=== PATIENT | male | born 2005 | race Caucasian/White ===

== ENCOUNTER 2024-12-31 16:59 | Emergency (ER) | payer OTHER ==
[2024-12-31 17:09] VITALS: PULSE 90; TEMP 98
--- NOTE | 2024-12-31 17:23 | ED ---
Recheck HPI - General Chief Complaint: Recheck/Abnormal Lab/Rx Stated Complaint: Abd/back pain Time Seen by Provider: 12/31/24 17:22 Source: patient, family, RN notes reviewed Mode of arrival: ambulatory Limitations: no limitations - History of Present Illness Initial Comments: 19-year-old male presented to the ER for evaluation of right lower abdominal/fl ank pain. Patient has a known kidney stone and is following up with urology, Dr. Lynne. Patient is scheduled to have surgical intervention in approximately 2 weeks for a "unpassable stone", per mother. Patient reports today he is having uncontrolled sharp stabbing right lower quadrant/right flank pain, nausea and vomiting due to pain. Currently rating his pain an 8 out of 10. Patient is taking antinausea medications and [place] for pain control at home along with Pepto-Bismol. He denies any fevers, chills, chest pain, shortness of breath. He does admit to dysuria and possible hematuria today. Mother contacted on-call urology, Dr. Doan, who instructed patient to come to the emergency department for further evaluation to ensure stone is not in need of emergent procedure. Patient is not on tamsulosin. Patient has no other complaints at this time. - Related Data Allergies Allergy/AdvReac Type Severity Reaction Status Date / Time latex Allergy Unknown Verified 12/31/24 17:09 Penicillins Allergy Unknown Verified 12/31/24 17:09 Review of Systems ROS Statement: Those systems with pertinent positive or pertinent negative responses have been documented in the HPI. ROS Other: All systems not noted in ROS Statement are negative. Past Medical History Additional Past Medical History / Comment(s): Kidney stones,Jaundice, [place] Dx. Sinus Tachy, Link monitor for seizures, low blood glucose, Autism, Ticks and tremors History of Any Multi-Drug Resistant Organisms: None Reported Past Surgical History: No Surgical Hx Reported Additional Past Surgical History / Comment(s): Link Monitor. Past Psychological History: ADD/ADHD Smoking Status: Never smoker Past Alcohol Use History: Rare Past Drug Use History: None Reported General Exam Limitations: no limitations General appearance: alert, in no apparent distress Respiratory exam: Present: normal lung sounds bilaterally. Absent: respiratory distress, wheezes, rales, rhonchi, stridor Cardiovascular Exam: Present: regular rate, normal rhythm, normal heart sounds. Absent: systolic murmur, diastolic murmur, rubs, gallop, clicks GI/Abdominal exam: Present: soft, tenderness (Right lower quadrant), normal bowel sounds Back exam: Present: normal inspection, other (No CVA tenderness bilaterally) Neurological exam: Present: alert, oriented X3, CN II-XII intact Skin exam: Present: warm, dry, intact, normal color. Absent: rash Course Vital Signs 12/31/24 12/31/24 17:04 19:40 Temperature 98.0 F Pulse Rate 90 90 Respiratory 17 18 Rate Blood Pressure 125/75 118/76 O2 Sat by Pulse 99 99 Oximetry Medical Decision Making - Medical Decision Making Was pt. sent in by a medical professional or institution (, PA, DRAGGER OUT, urgent care, hospital, or fpc...) When possible be specific @ -No Did you speak to anyone other than the patient for history (EMS, parent, family, police, friend...)? What history was obtained from this source @ -Patient's mother, at bedside, aiding in HPI and past medical history. Did you review nursing and triage notes (agree or disagree)? Why? @ -I reviewed and agree with nursing and triage notes Were old charts reviewed (outside hosp., previous admission, EMS record, old EKG, old radiological studies, urgent care reports/EKG's, fpc records)? Report findings @ -No old charts were reviewed Differential Diagnosis (chest pain, altered mental status, abdominal pain women, abdominal pain men, vaginal bleeding, weakness, fever, dyspnea, syncope, headache, dizziness, GI bleed, back pain, seizure, CVA, palpatations, mental health, musculoskeletal)? @ -Differential Abdominal Pain Men:Appendicitis, cholecystitis, diverticulosis, ischemic bowel, pancreatitis, hepatitis, UTI, gastroenteritis, AAA, incarcerated hernia, bowel obstruction, constipation, inflammatory bowel, hepatitis, peptic ulcer disease, splenic infarction, perforated viscus, testicular torsion, this is not meant to be an all-inclusive list EKG interpreted by me (3pts min.). @ -None X-rays interpreted by me (1pt min.). @ -None done CT interpreted by me (1pt min.). @ -CT abdomen pelvis without contrast showing a proximal 6 mm right ureteral stone causing moderate hydronephrosis. Staghorn calculus noted to right superi or kidney measuring 2 cm. Appendix unremarkable. U/S interpreted by me (1pt. min.). @ -None done What testing was considered but not performed or refused? (CT, X-rays, U/S, labs)? Why? @ -None What meds were considered but not given or refused? Why? @ -None Did you discuss the management of the patient with other professionals (professionals i.e. DrMehrdad, PA, DRAGGER OUT, lab, RT, psych nurse, social media editor, ethyl blender, teacher, affirmative action officer, behavioral health case manager)? Give summary @ -No Was smoking cessation discussed for >3mins.? @ -No Was critical care preformed (if so, how long)? @ -No Were there social determinants of health that impacted care today? How? (Homelessness, low income, unemployed, alcoholism, drug addiction, transportation, low edu. Level, literacy, decrease access to med. care, group home, rehab)? @ -No Was there de-escalation of care discussed even if they declined (Discuss DNR or withdrawal of care, Hospice)? DNR status @ -No What co-morbidities impacted this encounter? (DM, HTN, Smoking, COPD, CAD, Cancer, CVA, ARF, Chemo, Hep., AIDS, mental health diagnosis, sleep apnea, morbid obesity)? @ -None Was patient admitted / discharged? Hospital course, mention meds given and route, prescriptions, significant lab abnormalities, going to OR and other pertinent info. @ -Discharge. 19-year-old male presented the ER for evaluation of right lower quadrant abdominal pain/right flank pain. Vitals within acceptable limits. Laboratory studies unimpressive. Urinalysis is hemorrhagic with greater than 182 RBCs and large blood this is likely due to kidney stone. CT confirming stone with a 6 mm proximal right ureteral calculus with moderate upstream hydronephrosis. 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 Normal appendix. As there is no evidence of infection, pain is controlled emergency department, patient is stable for discharge at this time. I advised close follow-up with Dr. Lynne in 1 to 2 days for reevaluation. I instructed patient to take [place] and Zofran as prescribed by urology. I also recommended [id number] ibuprofen and Tylenol for pain control outpatient. Strict return parameters discussed. Patient discharged in stable condition. Patient verbally expressed understanding agreement with care plan. Case discussed with ED attending, Dr. Mckeon. Undiagnosed new problem with uncertain prognosis? @ -No Drug Therapy requiring intensive monitoring for toxicity (Heparin, Nitro, Insulin, Cardizem)? @ -No Were any procedures done? @ -No Diagnosis/symptom? @ -Ureterolithiasis Acute, or Chronic, or Acute on Chronic? @ -Acute Uncomplicated (without systemic symptoms) or Complicated (systemic symptoms)? @ -Uncomplicated Side effects of treatment? @ -No Exacerbation, Progression, or Severe Exacerbation? @ -No Poses a threat to life or bodily function? How? (Chest pain, USA, CT, pneumonia, PE, COPD, DKA, ARF, appy, cholecystitis, CVA, Diverticulitis, Homicidal, Suicidal, threat to staff... and all critical care pts) @ -Low at this time - Lab Data Result diagrams: 12/31/24 17:23 12/31/24 17:23 Lab Results 12/31/24 12/31/24 12/31/24 Range/Units 17:23 17:23 17:23 WBC 9.5 (3.8-10.6) k/uL RBC 5.19 (4.30-5.90) m/uL Hgb 15.1 (13.0-17.5) gm/dL Hct 46.0 (39.0-53.0) % MCV 88.7 (80.0-100.0) fL MCH 29.0 (25.0-35.0) pg MCHC 32.7 (31.0-37.0) g/dL RDW 13.3 (11.5-15.5) % Plt Count 341 (150-450) k/uL MPV 7.0 Neutrophils % 67 % Lymphocytes % 23 % Monocytes % 8 % Eosinophils % 1 % Basophils % 0 % Neutrophils # 6.3 (1.3-7.7) k/uL Lymphocytes # 2.1 (1.0-4.8) k/uL Monocytes # 0.7 (0-1.0) k/uL Eosinophils # 0.1 (0-0.7) k/uL Basophils # 0.0 (0-0.2) k/uL Sodium 140 (137-145) mmol/L Potassium 4.0 (3.5-5.1) mmol/L Chloride 99 (98-107) mmol/L Carbon Dioxide 31 H (22-30) mmol/L Anion Gap 10 mmol/L BUN 13 (9-20) mg/dL Creatinine 0.97 (0.66-1.25) mg/dL Est GFR (CKD-EPI)AfAm >90 (>60 ml/min/1.73 sqM) Est GFR (CKD-EPI)NonAf >90 (>60 ml/min/1.73 sqM) Glucose 111 H (74-99) mg/dL Plasma Lactic Acid Delfin 1.0 (0.7-2.0) mmol/L Calcium 10.3 H (8.4-10.2) mg/dL Total Bilirubin 1.9 H (0.2-1.3) mg/dL AST 45 (17-59) U/L ALT 39 (4-49) U/L Alkaline Phosphatase 55 (38-126) U/L Total Protein 8.1 (6.3-8.2) g/dL Albumin 5.1 H (3.5-5.0) g/dL Urine Color Urine Appearance (Clear) Urine pH (5.0-8.0) Ur Specific [place] (1.001-1.035) Urine Protein (Negative) Urine Glucose (UA) (Negative) Urine Ketones (Negative) Urine Blood (Negative) Urine Nitrite (Negative) Urine Bilirubin (Negative) Urine Urobilinogen (<2.0) mg/dL Ur Leukocyte Esterase (Negative) Urine RBC (0-5) /hpf Urine WBC (0-5) /hpf Ur Squamous Epith Cells (0-4) /hpf Urine Mucus (None) /hpf 12/31/24 Range/Units 18:15 WBC (3.8-10.6) k/uL RBC (4.30-5.90) m/uL Hgb (13.0-17.5) gm/dL Hct (39.0-53.0) % MCV (80.0-100.0) fL MCH (25.0-35.0) pg MCHC (31.0-37.0) g/dL RDW (11.5-15.5) % Plt Count (150-450) k/uL MPV Neutrophils % % Lymphocytes % % Monocytes % % Eosinophils % % Basophils % % Neutrophils # (1.3-7.7) k/uL Lymphocytes # (1.0-4.8) k/uL Monocytes # (0-1.0) k/uL Eosinophils # (0-0.7) k/uL Basophils # (0-0.2) k/uL Sodium (137-145) mmol/L Potassium (3.5-5.1) mmol/L Chloride (98-107) mmol/L Carbon Dioxide (22-30) mmol/L Anion Gap mmol/L BUN (9-20) mg/dL Creatinine (0.66-1.25) mg/dL Est GFR (CKD-EPI)AfAm (>60 ml/min/1.73 sqM) Est GFR (CKD-EPI)NonAf (>60 ml/min/1.73 sqM) Glucose (74-99) mg/dL Plasma Lactic Acid Delfin (0.7-2.0) mmol/L Calcium (8.4-10.2) mg/dL Total Bilirubin (0.2-1.3) mg/dL AST (17-59) U/L ALT (4-49) U/L Alkaline Phosphatase (38-126) U/L Total Protein (6.3-8.2) g/dL Albumin (3.5-5.0) g/dL Urine Color Yellow Urine Appearance Cloudy (Clear) Urine pH 7.5 (5.0-8.0) Ur Specific [place] 1.022 (1.001-1.035) Urine Protein Trace H (Negative) Urine Glucose (UA) Negative (Negative) Urine Ketones Negative (Negative) Urine Blood Large H (Negative) Urine Nitrite Negative (Negative) Urine Bilirubin Negative (Negative) Urine Urobilinogen <2.0 (<2.0) mg/dL Ur Leukocyte Esterase Negative (Negative) Urine RBC >182 H (0-5) /hpf Urine WBC 5 (0-5) /hpf Ur Squamous Epith Cells 1 (0-4) /hpf Urine Mucus Rare H (None) /hpf - Radiology Data Radiology results: report reviewed, image reviewed Disposition Clinical Impression: Ureterolithiasis Disposition: HOME SELF-CARE Condition: Stable Instructions (If sedation given, give patient instructions): Kidney Stones (ED) Additional Instructions: Take [place] and Zofran as prescribed. I also recommend [id number] ibuprofen and Tylenol for pain control. Follow-up closely with urology. Return to the ER for any new or worsening concerns. Is patient prescribed a controlled substance at d/c from ED?: No Referrals: Brad Bryan [Primary Care Provider] - 1-2 days Crow Lynne MD [STAFF PHYSICIAN] - 1-2 days Time of Disposition: 19:27
[2024-12-31 17:33] LABS: Basophils % (A) 0 %; Eosinophils # (A) 0.1 k/uL (0-0.7); Eosinophils % (A) 1 %; HGB 15.1 gm/dL (13.0-17.5); Lymphocytes # (A) 2.1 k/uL (1.0-4.8); Lymphocytes % (A) 23 %; MCHC 32.7 g/dL (31.0-37.0); MCV 88.7 fL (80.0-100.0); Monocytes # (A) 0.7 k/uL (0-1.0); Monocytes % (A) 8 %; Neutrophils # (A) 6.3 k/uL (1.3-7.7); Neutrophils % (A) 67 %; Platelet Count 341 k/uL (150-450); RBC 5.19 m/uL (4.30-5.90); RDW 13.3 % (11.5-15.5); WBC 9.5 k/uL (3.8-10.6)
[2024-12-31 17:50] LABS: ALT 39 U/L (4-49); AST 45 U/L (17-59); African American GFR (CKD) >90 (>60 ml/min/1.73 sqM); Albumin 5.1 g/dL (3.5-5.0); Alkaline Phosphatase 55 U/L (38-126); Anion Gap 10 mmol/L; Blood Urea Nitrogen 13 mg/dL (9-20); Calcium 10.3 mg/dL (8.4-10.2); Carbon Dioxide 31 mmol/L (22-30); Chloride 99 mmol/L (98-107); Glucose 111 mg/dL (74-99); Non-African American GFR(CKD) >90 (>60 ml/min/1.73 sqM); Sodium 140 mmol/L (137-145); Total Bilirubin 1.9 mg/dL (0.2-1.3); Total Protein 8.1 g/dL (6.3-8.2)
--- NOTE | 2024-12-31 18:22 | CT ---
EXAMINATION TYPE: CT abdomen pelvis wo con DATE OF EXAM: 12/31/2024 6:11 PM COMPARISON: None available. CLINICAL INDICATION: Male, 19 years old with history of r flank pain hx stone; Right flank pain for t he last couple days, hx of kidney stones. TECHNIQUE: Axial CT abdomen pelvis wo con;Sagittal and coronal reformats were created on a separate workstation. Oral contrast used: without Oral Contrast (none if empty) CT DLP: 399.3 mGycm, Automated exposure control for dose reduction was used. FINDINGS: LOWER CHEST: Unremarkable ABDOMEN LIVER: Unremarkable GALLBLADDER AND BILE DUCTS: Unremarkable. PANCREAS: Unremarkable. SPLEEN: Unremarkable. ADRENAL GLANDS: Unremarkable. KIDNEYS AND URETERS: 2 cm staghorn calculus in the mid/upper right kidney. 6 mm calculus in the proxi mal right ureter causing mild upstream hydronephrosis. No evidence of left-sided nephrolithiasis or h ydronephrosis. PELVIS BLADDER: No evidence for wall thickening or mass given limitations of exam. REPRODUCTIVE: Unremarkable. ABDOMEN & PELVIS STOMACH AND BOWEL: Stomach and duodenum are unremarkable. No evidence of bowel obstruction. Mildly im pacted rectosigmoid colonic stool. Appendix unremarkable. PERITONEUM/RETROPERITONEUM: No evidence of pneumoperitoneum or free fluid. VASCULATURE: No evidence of aortic aneurysm. MUSCULOSKELETAL: No acute osseous abnormalities LYMPH NODES: No gross evidence for lymphadenopathy. SOFT TISSUE/ABDOMINAL WALL: Unremarkable IMPRESSION: 1. Proximal 6 mm right ureteral calculus causing moderate upstream hydronephrosis. 2. Staghorn calculus in the superior right kidney measuring 2 cm. [facility], , 12/31/2024 6:19 PM
[2024-12-31 18:33] LABS: Appearance,Urine Cloudy (Clear); Bilirubin,Urine Negative (Negative); Blood,Urine Large (Negative); Color,Urine Yellow; Glucose,Urine (UA) Negative (Negative); Ketones,Urine Negative (Negative); Leukocyte Esterase,Urine Negative (Negative); Mucus,Urine Rare /hpf; Nitrite,Urine Negative (Negative); PH, Urine 7.5 (5.0-8.0); Protein,Urine Trace (Negative); RBC,Urine >182 /hpf (0-5); Specific Gravity,Urine 1.022 (1.001-1.035); Squamous Epithelial Cell,Urine 1 /hpf (0-4); Urobilinogen,Urine <2.0 mg/dL (<2.0); WBC,Urine 5 /hpf (0-5)
[2024-12-31] MEDS: KETOROLAC 15 MG/ML 1 ML VIAL IVP STA (18:41)
[2024-12-31] MEDS: ONDANSETRON 4 MG/2 ML VIAL IVP STA (18:41)
[2024-12-31] MEDS: SODIUM CHLORIDE 0.9% 1,000 ML IV ONE (18:42)
[2024-12-31] MEDS: HYDROmorphone 0.5 MG/0.5 ML SYRINGE IVP STA (18:42)
[2024-12-31 19:40] VITALS: BP 118/76; RESP 18
== END 2024-12-31 19:40 | disposition home or self-care (01) ==
LOC: EC 16:59
DX: N13.2 Hydronephrosis with renal and ureteral calculous obstruction (principal)
CPT/HCPCS: 36415; 80053; 83605; 85025; 81001; 74176; 99284; 96374; 96375 ×2; 96361; J2405; J1885; J1171

== ENCOUNTER 2025-01-01 07:45 | Emergency (ER) | payer OTHER ==
[2025-01-01 07:50] VITALS: TEMP 97.3
[2025-01-01] MEDS: ONDANSETRON 4 MG/2 ML VIAL IVP STA (08:15)
[2025-01-01] MEDS: KETOROLAC 15 MG/ML 1 ML VIAL IVP STA (08:15)
[2025-01-01] MEDS: SODIUM CHLORIDE 0.9% 1,000 ML IV ONE (08:15)
--- NOTE | 2025-01-01 08:15 | ED ---
General Adult HPI - General Chief complaint: Recheck/Abnormal Lab/Rx Stated complaint: Weakness,Vomiting Time Seen by Provider: 01/01/25 08:10 Source: patient, family, RN notes reviewed, old records reviewed Mode of arrival: ambulatory Limitations: no limitations - History of Present Illness Initial comments: Patient is a 19-year-old male who presents emergency department as a reevaluation for kidney stone pain. Presented yesterday and diagnosed with right sided ureteral lithiasis and staghorn calculi. CT imaging obtained yesterday shows a proximal 6 mm right ureteral calculus with moderate hydronephrosis. Patient also had a separate staghorn calculus measuring 2 cm. This was intrarenal on the right side. Patient has a known right-sided kidney stone which is likely at this staghorn calculus. Patient is scheduled for surgery in approximately 2 weeks. He is due to follow-up with Dr. Parra. Pain has been worse over the last 2 days. Patient was discharged home yesterday as there was no evidence of infection, had pain under control, and therefore was instructed to follow-up outpatient. Patient states that pain once again got worse this morning. Attempted to take one of his previously prescribed zofran and [place] tablets however he had an episode of emesis. Was brought here by his parents for further evaluation. - Related Data Allergies Allergy/AdvReac Type Severity Reaction Status Date / Time latex Allergy Unknown Verified 01/01/25 07:50 Penicillins Allergy Unknown Verified 01/01/25 07:50 Review of Systems ROS Statement: Those systems with pertinent positive or pertinent negative responses have been documented in the HPI. Review of Systems: CONST: Denies fever EYES: Denies blurry vision ENT: Denies nasal congestion C/V: Denies Chest pain RESP: Denies shortness of breath GI: Endorses abdominal pain : Endorses hematuria SKIN: Denies rash. MSK: Denies joint pain. NEURO: Denies headache ROS Other: All systems not noted in ROS Statement are negative. Past Medical History Additional Past Medical History / Comment(s): Kidney stones,Jaundice, [place] Dx. Sinus Tachy, Link monitor for seizures, low blood glucose, Autism, Ticks and tremors History of Any Multi-Drug Resistant Organisms: None Reported Past Surgical History: No Surgical Hx Reported Additional Past Surgical History / Comment(s): Link Monitor. Past Psychological History: ADD/ADHD Smoking Status: Never smoker Past Alcohol Use History: Rare Past Drug Use History: None Reported General Exam - General Exam Comments Initial Comments: General: Appears in moderate distress secondary to right flank pain, nausea HEAD: Normal with no signs of head trauma. EYES: EOMI ENT: Hearing grossly intact, normal oropharynx. RESPIRATORY: Clear breath sounds bilaterally. No wheezes, rales, or rhonchi. C/V: Regular rate and rhythm. S1 and S2 auscultated, no edema, peripheral pulses 2+ and intact throughout ABD: Abdomen is soft, nondistended. Tender to palpation of the right flank and right CVA. No guarding or rebound tenderness. No peritoneal signs. EXT: No obvious deformity SKIN: No rashes or lesions observed on exposed skin. NEURO: Alert and oriented x 4. Limitations: no limitations Course Vital Signs 01/01/25 01/01/25 07:47 10:13 Temperature 97.3 F L Pulse Rate 81 74 Respiratory 18 16 Rate Blood Pressure 138/86 117/89 O2 Sat by Pulse 100 100 Oximetry Medical Decision Making - Medical Decision Making Was pt. sent in by a medical professional or institution (, PA, PROFESSIONAL SERVICES CONSULTANT, urgent care, hospital, or [facility]cc...) When possible be specific @ -No Did you speak to anyone other than the patient for history (EMS, parent, family, police, friend...)? What history was obtained from this source @ -No Did you review nursing and triage notes (agree or disagree)? Why? @ -I reviewed and agree with nursing and triage notes Were old charts reviewed (outside hosp., previous admission, EMS record, old EKG, old radiological studies, urgent care reports/EKG's, mcc records)? Report findings @ -Viewed chart from yesterday as well as CT which showed the 6 mm right sided ureteral lithiasis as well as the staghorn calculi located intrarenally on the right. Differential Diagnosis (chest pain, altered mental status, abdominal pain women, abdominal pain men, vaginal bleeding, weakness, fever, dyspnea, syncope, headac he, dizziness, GI bleed, back pain, seizure, CVA, palpatations, mental health, musculoskeletal)? @ -Ureterolithiasis, staghorn calculi, UTI, infected renal stone. This list is not all inclusive. EKG interpreted by me (3pts min.). @ -None done X-rays interpreted by me (1pt min.). @ -None done CT interpreted by me (1pt min.). @ -None done U/S interpreted by me (1pt. min.). @ -Ultrasound reveals mild hydronephrosis on the right side. Redemonstrated proximal right ureteral stone as well as staghorn calculus in the right kidney. What testing was considered but not performed or refused? (CT, X-rays, U/S, labs)? Why? @ -None What meds were considered but not given or refused? Why? @ -None Did you discuss the management of the patient with other professionals (professionals i.e. DrMehrdad, PA, PROFESSIONAL SERVICES CONSULTANT, lab, RT, psych nurse, aids social worker, forest scientist, teacher, division officer weapons department, case supervisor)? Give summary @ -No Was smoking cessation discussed for >3mins.? @ -No Was critical care preformed (if so, how long)? @ -yes, 31 minutes Were there social determinants of health that impacted care today? How? (Homelessness, low income, unemployed, alcoholism, drug addiction, transportation, low edu. Level, literacy, decrease access to med. care, intermediate, rehab)? @ -No Was there de-escalation of care discussed even if they declined (Discuss DNR or withdrawal of care, Hospice)? DNR status @ -No What co-morbidities impacted this encounter? (DM, HTN, Smoking, COPD, CAD, Cancer, CVA, ARF, Chemo, Hep., AIDS, mental health diagnosis, sleep apnea, morbid obesity)? @ -None Was patient admitted / discharged? Hospital course, mention meds given and route, prescriptions, significant lab abnormalities, going to OR and other pertinent info. @ -Based on the patient's presentation and physical exam, presents emergency department with intractable pain from right sided kidney stone. Presented yesterday with similar complaints. Discharged home in good condition. Is due for outpatient surgical management of a right sided kidney stone in [address] Lynne. Will repeat laboratory studies and urinalysis. Will obtain an ultrasound of the renals and bladder to see if there is any significant change i n hydronephrosis or noticeable stone. Patient will be symptomatically treated with IV fluids, antiemetics, analgesia medications. He was in agreement this plan. Vital signs within acceptable limits. Patient's laboratory studies returned within acceptable limits. Systemically, no evidence of infection. Urine is still pending. Ultrasound is still pending. Patient has received multiple doses of pain medications in our emergency department so far. He is still in pain. Discussed with the patient as well as family and we are in agreement for transfer, as we did contact our urology services at our facility and we have no coverage until Saturday, January 04, 2025. They are requesting transfer to [facility]. We will attempt transfer at this time. Will continue with IV fluids, analgesia medications. Antibiotics are not initiated as no evidence of infection on yesterday's urinalysis. Have yet to receive urine for today. Ultrasound reveals mild hydronephrosis on the right side. Redemonstrated proximal right ureteral stone as well as staghorn calculus in the right kidney. Patient accepted to [facility], ER physician Dr. Hennessy and urology physician Dr. Myers are accepting physicians. Undiagnosed new problem with uncertain prognosis? @ -No Drug Therapy requiring intensive monitoring for toxicity (Heparin, Nitro, Insulin, Cardizem)? @ -No Were any procedures done? @ -No Diagnosis/symptom? @ -Right-sided ureteral lithiasis with intractable pain and nausea Acute, or Chronic, or Acute on Chronic? @ -Acute Uncomplicated (without systemic symptoms) or Complicated (systemic symptoms)? @ -Complicated Side effects of treatment? @ -None Exacerbation, Progression, or Severe Exacerbation] @ -No Poses a threat to life or bodily function? @ -Potentially, yes - Lab Data Result diagrams: 01/01/25 08:24 01/01/25 08:24 Lab Results 01/01/25 01/01/25 01/01/25 Range/Units 08:24 08:24 08:24 WBC 10.1 (3.8-10.6) k/uL RBC 4.90 (4.30-5.90) m/uL Hgb 14.2 (13.0-17.5) gm/dL Hct 43.8 (39.0-53.0) % MCV 89.2 (80.0-100.0) fL MCH 28.9 (25.0-35.0) pg MCHC 32.4 (31.0-37.0) g/dL RDW 12.8 (11.5-15.5) % Plt Count 287 (150-450) k/uL MPV 6.8 Neutrophils % 64 % Lymphocytes % 25 % Monocytes % 8 % Eosinophils % 1 % Basophils % 0 % Neutrophils # 6.4 (1.3-7.7) k/uL Lymphocytes # 2.5 (1.0-4.8) k/uL Monocytes # 0.8 (0-1.0) k/uL Eosinophils # 0.1 (0-0.7) k/uL Basophils # 0.0 (0-0.2) k/uL Sodium 138 (137-145) mmol/L Potassium 4.0 (3.5-5.1) mmol/L Chloride 102 (98-107) mmol/L Carbon Dioxide 25 (22-30) mmol/L Anion Gap 11 mmol/L BUN 15 (9-20) mg/dL Creatinine 1.17 (0.66-1.25) mg/dL Est GFR (CKD-EPI)AfAm >90 (>60 ml/min/1.73 sqM) Est GFR (CKD-EPI)NonAf 89 (>60 ml/min/1.73 sqM) Glucose 108 H (74-99) mg/dL Plasma Lactic Acid Delfin 1.8 (0.7-2.0) mmol/L Calcium 10.0 (8.4-10.2) mg/dL Total Bilirubin 1.8 H (0.2-1.3) mg/dL AST 36 (17-59) U/L ALT 33 (4-49) U/L Alkaline Phosphatase 53 (38-126) U/L Total Protein 7.2 (6.3-8.2) g/dL Albumin 4.6 (3.5-5.0) g/dL Critical Care Time Critical Care Time: Yes Total Critical Care Time: 31 Disposition Clinical Impression: Ureterolithiasis, Kidney stone on right side, Staghorn calculus, Intractable pain, Intractable nausea and vomiting Disposition: OTHER INSTITUTION NOT DEFINED Condition: Stable Referrals: Brad Bryan [Primary Care Provider] - 1-2 days Time of Disposition: 10:03 - Out of Hospital Transfer - Req. Specs Out of Hospital Transfer - Requested Specifics: Other Emergency Center (Transferred to [facility] for urology evaluation, as we do not have urology at our facility.)
[2025-01-01] MEDS: PANTOPRAZOLE 40 MG/10 ML VIAL IVP STA (08:16)
[2025-01-01] MEDS: MORPHINE SULFATE 4 MG/ML SYRINGE IVP STA ×2 (08:16→09:00)
[2025-01-01 08:44] LABS: Basophils % (A) 0 %; Eosinophils # (A) 0.1 k/uL (0-0.7); Eosinophils % (A) 1 %; HCT 43.8 % (39.0-53.0); HGB 14.2 gm/dL (13.0-17.5); Lymphocytes # (A) 2.5 k/uL (1.0-4.8); Lymphocytes % (A) 25 %; MCH 28.9 pg (25.0-35.0); MCHC 32.4 g/dL (31.0-37.0); MCV 89.2 fL (80.0-100.0); Mean Platelet Volume 6.8; Monocytes # (A) 0.8 k/uL (0-1.0); Monocytes % (A) 8 %; Neutrophils # (A) 6.4 k/uL (1.3-7.7); Neutrophils % (A) 64 %; Platelet Count 287 k/uL (150-450); RDW 12.8 % (11.5-15.5); WBC 10.1 k/uL (3.8-10.6)
[2025-01-01 09:07] LABS: ALT 33 U/L (4-49); AST 36 U/L (17-59); African American GFR (CKD) >90 (>60 ml/min/1.73 sqM); Albumin 4.6 g/dL (3.5-5.0); Alkaline Phosphatase 53 U/L (38-126); Anion Gap 11 mmol/L; Blood Urea Nitrogen 15 mg/dL (9-20); Carbon Dioxide 25 mmol/L (22-30); Chloride 102 mmol/L (98-107); Glucose 108 mg/dL (74-99); Non-African American GFR(CKD) 89 (>60 ml/min/1.73 sqM); Sodium 138 mmol/L (137-145); Total Bilirubin 1.8 mg/dL (0.2-1.3); Total Protein 7.2 g/dL (6.3-8.2)
--- NOTE | 2025-01-01 10:03 | US ---
EXAMINATION TYPE: US renals and bladder DATE OF EXAM: 01/01/2025 COMPARISON: CT 12/31/24 CLINICAL INDICATION: Male, 19 years old with history of right flank pain, known kidney stone; staghor n calc/ hydro TECHNIQUE: Grayscale imaging of the bilateral kidneys and urinary bladder: FINDINGS: EXAM MEASUREMENTS: Right Kidney: 10.9x6.5x4.7 cm Left Kidney: 10.2x5.0x4.5 cm Right Kidney: 2.3x1.6x2.1cm staghorn calc, mild hydro with 1.1cm stone noted at the proximal ureter s imilar to CT yesterday Left Kidney: No hydronephrosis or masses seen Bladder: poorly distended Bilateral Jets seen: No IMPRESSION: 1. Mild right hydronephrosis secondary to a calcification in the proximal right ureter. Based on CT a bdomen pelvis dated 12/31/2024 the stone measures approximately 6 mm 2. 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 3. Unremarkable left kidney. 4. urinary bladder not evaluated due to poor distention. [facility], , 01/01/2025 10:00 AM
[2025-01-01] MEDS: HYDROmorphone 0.5 MG/0.5 ML SYRINGE IVP STA (10:12)
[2025-01-01] MEDS: SODIUM CHLORIDE 0.9% 1,000 ML IV STA (10:12)
[2025-01-01 10:22] VITALS: RESP 16
[2025-01-01 11:48] VITALS: BP 134/93; PULSE 99
== END 2025-01-01 11:48 | disposition other institution (70) ==
LOC: EC 07:45
DX: N13.2 Hydronephrosis with renal and ureteral calculous obstruction (principal); Z91.040 Latex allergy status; Z88.0 Allergy status to penicillin
CPT/HCPCS: 36415; 80053; 83605; 85025; 76770; 99291; 96374; 96375 ×4; 96376; 96361 ×3; J2270; J2405; J1885; J1171; J2470

== ENCOUNTER → 2025-01-16 | Outpatient (CLI) | payer OTHER ==
[2025-01-16 18:54] LABS: Basophils # (A) 0.07 X 10*3/uL (0.00-0.10); Basophils % (A) 0.7 %; Eosinophils # (A) 0.16 X 10*3/uL (0.04-0.35); Eosinophils % (A) 1.5 %; HCT 45.4 % (39.6-50.0); HGB 15.1 g/dL (13.0-17.0); Lymphocytes # (A) 2.08 X 10*3/uL (0.90-5.00); Lymphocytes % (A) 20.1 %; MCH 29.6 pg (27.0-32.0); MCHC 33.3 g/dL (32.0-37.0); Mean Platelet Volume 9.6 FL (9.5-12.2); Monocytes # (A) 0.88 X 10*3/uL (0.20-1.00); Monocytes % (A) 8.5 %; NRBC Per 100 WBC 0 X 10*3/uL (0.00-0.01); Neutrophils # (A) 7.12 X 10*3/uL (1.80-7.70); Neutrophils % (A) 68.8 %; Platelet Count 347 X 10*3/uL (140-440); RDW 12.5 % (11.5-14.5); WBC 10.35 X 10*3/uL (4.50-10.00)
[2025-01-16 19:06] LABS: BUN/Creat Ratio 11.33 Ratio (12.00-20.00); Blood Urea Nitrogen 13.6 mg/dL (9.0-27.0); Calcium 10.4 mg/dL (8.7-10.3); Carbon Dioxide 28.9 mmol/L (21.6-31.8); Chloride 101 mmol/L (96-109); Glucose 89 mg/dL (70-110); Potassium 4.3 mmol/L (3.5-5.5); Sodium 141 mmol/L (135-145)
[2025-01-16 21:22] LABS: Appearance,Urine Cloudy (Clear); Bilirubin,Urine Negative (Negative); Blood,Urine Large (Negative); Color,Urine Orange (Yellow); Ketones,Urine Negative (Negative); Nitrite,Urine Negative (Negative); PH, Urine 6.5; Specific Gravity,Urine 1.016 (1.001-1.030); Urobilinogen,Urine 0.2 E.U./DL
[2025-01-16 22:29] LABS: Bacteria,Urine None Seen (None Seen); Cystine Crystals,Urine Present (None Seen)
== END | disposition home or self-care (01) ==
LOC: LABPAT 14:49
PROVIDERS: ATTEND Urology
DX: Z01.818 Encounter for other preprocedural examination (principal); I49.8 Other specified cardiac arrhythmias; N20.0 Calculus of kidney; R55 Syncope and collapse
CPT/HCPCS: 80048; 81001; 85025; 86850; 86900; 86901; 87086

== ENCOUNTER 2025-01-17 09:26 | Day surgery (SDC) | payer OTHER ==
[2025-01-16 09:11] VITALS: BMI 21.5
--- NOTE | 2025-01-17 09:44 | XR ---
EXAMINATION TYPE: XR KUB DATE OF EXAM: 01/17/2025 9:40 AM CLINICAL INDICATION: Male, 19 years old with history of N20.0 CALCULUS OF KIDNEY, pain TECHNIQUE: 2 supine images of the abdomen. COMPARISON: CT abdomen and pelvis December 31, 2024. FINDINGS: There is now a right-sided double-J ureter stent. Small right proximal ureter calculus on C T is less well seen on x-rays. Overall nonobstructive bowel gas pattern. Visualized osseous structures are intact. IMPRESSION: As above. [facility], , 01/17/2025 9:42 AM
[2025-01-17] MEDS: IV FLUID CONTINUATION 1,000 ML IV ONE ×4 (10:10→14:39)
[2025-01-17] MEDS: LACTATED RINGERS 1,000 ML IV SCH (10:20)
[2025-01-17] MEDS: GENTAMICIN 120 MG in SODIUM CHLORIDE 0.9% 100 ML IVPB PRN (10:22)
[2025-01-17] MEDS: ONDANSETRON 4 MG/2 ML VIAL IVP ONE (10:23)
[2025-01-17] MEDS: DEXAMETHASONE SOD PHOSPHATE 4 MG/ML 1 ML VIAL IV ONE (10:23)
--- NOTE | 2025-01-17 10:49 | P.HPIHPCON ---
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 He is symptomatic from his stone. Option of a right-sided PCNL was discussed. He is aware of the risk which include but not limited to bleeding, infection, injury to the kidney. Discussed also the risk of injury to nearby organs which include but not limited to bowel, liver, lungs. Risk of anesthesia was also discussed. He understood all the risk and agreed to proceed Consent for Procedure: I have explained the operation/procedure to the patient, including the risks, benefits, side effects, alternative therapies (including not receiving the proposed treatment or service), the likelihood of the patient achieving his/her goals, and potential recuperation problems for the procedure/sedation/analgesia, as well as any blood products, if indicated. I also explained to the patient the risks, benefits and side effects of the alternatives, as well as the risks related to not receiving the proposed procedure, care, treatment, or services. Past Medical History Past Medical History: Asthma, Syncope Additional Past Medical History / Comment(s): Kidney stones,Jaundice, [place] Dx. Sinus Tachy, Link monitor for seizures, low blood glucose, Autism, Ticks and tremors History of Any Multi-Drug Resistant Organisms: None Reported Past Surgical History: No Surgical Hx Reported Additional Past Surgical History / Comment(s): Link Monitor. Past Anesthesia/Blood Transfusion Reactions: No Reported Reaction Additional Past Anesthesia/Blood Transfusion Reaction / Comment(s): no hx blood transfusion. states "mom takes a lot of anesthesia to be sedated" Type of Cardiac Device: Loop Device Placement Date:: 2021 Past Psychological History: ADD/ADHD Past Alcohol Use History: Rare - Past Family History Mother Additional Family Medical History / Comment(s): thinks "mom had a blood clot around heart" Medications and Allergies Home Medications Medication Instructions Recorded Confirmed Type Sertraline HCl [Zoloft] 50 mg PO QAM 01/16/25 01/17/25 History Allergies Allergy/AdvReac Type Severity Reaction Status Date / Time latex Allergy Anaphylaxis Verified 01/17/25 10:03 Penicillins Allergy Anaphylaxis Verified 01/17/25 10:03 Surgical - Exam Vital Signs Temp Pulse Resp BP Pulse Ox 97.4 F L 68 16 130/91 98 01/17/25 10:10 01/17/25 10:10 01/17/25 10:10 01/17/25 10:10 01/17/25 10:10 - General no distress, moderate pain - Eyes normal ocular movement, no pale - ENT normal nares, normal mucosa - Respiratory normal expansion, normal respiratory effort - Abdomen Abdomen: soft, non tender Assessment and Plan Assessment: OR for right-sided PCNL
[2025-01-17] MEDS ORDERED: MAG HYDROX/AL HYDROX/SIMETH 30 ML CUP PO PRN (11:31)
[2025-01-17] MEDS ORDERED: ACETAMINOPHEN TAB 325 MG TAB PO PRN (11:31)
[2025-01-17] MEDS ORDERED: HYDROmorphone 0.5 MG/0.5 ML SYRINGE IVP PRN (11:33)
[2025-01-17] MEDS ORDERED: HYDROcodone/APAP 5-325MG 1 EACH TAB PO PRN (11:33)
[2025-01-17] MEDS ORDERED: SUCCINYLCHOLINE CHLORIDE 200 MG/10 ML VIAL IV ONE (11:57)
[2025-01-17] MEDS ORDERED: HYDROmorphone (PF) 1 MG/ML ONE (11:57)
[2025-01-17] MEDS ORDERED: PHENYLEPHRINE 10 MG/ML VIAL ONE (11:57)
[2025-01-17] MEDS ORDERED: LIDOCAINE 1% INJ 10MG/ML (20 ML MDV) ONE (11:57)
[2025-01-17] MEDS ORDERED: GLYCOPYRROLATE 0.2 MG/ML 2 ML VIAL ONE (11:57)
[2025-01-17] MEDS ORDERED: PROPOFOL 10 MG/ML 20 ML VIAL IV ONE (11:57)
[2025-01-17] MEDS ORDERED: KETAMINE HCL IN 0.9 % NACL 50 MG/5 ML SYRINGE ONE (11:57)
[2025-01-17] MEDS ORDERED: NEOSTIGMINE 1 MG/ML 10 ML VIAL ONE (11:57)
[2025-01-17] MEDS ORDERED: ROCURONIUM 10 MG/ML (5 ML VIAL) IV ONE (11:57)
[2025-01-17] MEDS ORDERED: ESMOLOL 100 MG/10 ML VIAL ONE (11:57)
[2025-01-17] MEDS ORDERED: MIDAZOLAM 2 MG/2 ML VIAL ONE (11:57)
[2025-01-17] MEDS ORDERED: fentaNYL (PF) 50 MCG/ML 2 ML AMP ONE (11:57)
[2025-01-17] MEDS: IOPAMIDOL-370 100ML BTL MISCELLANE ONE (11:59)
[2025-01-17] MEDS: CIPROFLOXACIN/DEXTROSE PMX 400 MG in DEXTROSE/WATER 1 200ML.BAG IVPB PRN (11:59)
--- NOTE | 2025-01-17 12:58 | P.PCN ---
Date of Procedure: 01/17/25 Preoperative Diagnosis: Right renal stone large (greater than 2 cm) Postoperative Diagnosis: Same Procedure(s) Performed: Percutaneous access to right kidney Anesthesia: CHERYL Surgeon: Scott Stone Indications for Procedure: Patient is 19. He has a large right upper pole stone plus some smaller renal stones. He comes for percutaneous nephrostolithotomy by . When asked to perform percutaneous access to the right kidney Description of Procedure: The patient has previously been brought to the operating suite and given a general anesthetic. is placed in occluding balloon catheter into the right collecting system. The collecting system was then outlined using air into the renal pelvis and calyces. Once we identify the calyx to intubate we filled the collecting system with fluid. We passed a Chiba needle into the upper pole calyx. Once we establish that we are in the calyx we advanced a cope mandrel wire through the Chiba needle down into the proximal ureter. Over the wire is then passed the 6 [place] relating catheter. Was advanced into the proximal ureter. The inner catheters are removed and we passed an 035 Super Stiff wire down the ureter. Over the Super Stiff wire is passed an 8 and 10 [place] dilating catheter. The inner catheter was removed and a second safety wire is passed down the ureter. Then over the working wire the 30 [place] nephrostomy tract dilating balloon is passed and the tract is dilated and the sheath is advanced over the dilating balloon into the upper collecting system.
--- NOTE | 2025-01-17 13:56 | FL ---
EXAMINATION TYPE: FL Perc Nephrostomy New Access DATE OF EXAM: 01/17/2025 CLINICAL INDICATION: Male, 19 years old with history of RIGHT RENAL STONE, TECHNIQUE: Fluoroscopy. COMPARISON: None. FINDINGS: Fluoroscopic guidance was provided during percutaneous nephrostomy procedure performed by Dr. Vinson. A total of 75 seconds of fluoroscopic time was utilized during the procedure and 0 spot images was acquired. TOTAL DAP = [id number]. IMPRESSION: As Above. [facility], , 01/17/2025 1:53 PM
[2025-01-17] MEDS: HYDROmorphone 0.5 MG/0.5 ML SYRINGE IVP PRN (14:00)
--- NOTE | 2025-01-17 14:01 | P.OP ---
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 He is symptomatic from his stone. Option of a right-sided PCNL was discussed. He is aware of the risk which include but not limited to bleeding, infection, inj ury to the kidney. Discussed also the risk of injury to nearby organs which include but not limited to bowel, liver, lungs. Risk of anesthesia was also discussed. He understood all the risk and agreed to proceed Operative Findings: Large right-sided renal stone, right proximal ureteral stone Description of Procedure: Patient brought to the operating room, general anesthesia was induced. He was placed in a frog-leg position on the stretcher. He was prepped and draped in sterile fashion. Next a cystoscope with a 21 [place] sheath was inserted per urethra, the stent was seen protruding from the right ureteral orifice, the stent was grasped and removed to the meatus. Next a sensor wire was advanced through the stent and the stent was removed with the wire in place. Next an 8 [place] balloon occlusion catheter was passed over the wire and into the kidney. 16 [place] silicone catheter was placed in the catheter was secured to the ball oon occlusion catheter. At this point the patient was placed in a prone position, the right flank was prepped and draped in sterile fashion. Access to the right upper pole above the 12th rib was obtained by Dr. Stone, please see his procedure note for that portion of the case. After 2 wire was down the ureter next the NephroMax balloon was passed over the wire, and the tract was dilated under fluoroscopy. Next a 30 [place] access sheath was passed over the balloon and into the kidney. Next the rigid nephroscope was inserted through the access sheath, a large stone was seen in the upper pole. Using the ultrasound lithotripter the stone was fragmented, stone fragments were removed using the grasper. At this time I switched to the flexible cystoscope, renoscopy was performed showed no additional stones that are sizable within the kidney, there was a stone that was visualized at the level of the proximal ureter which was grasped and removed using the stone basket. I advanced the sco pe all the way down to the mid ureter which showed no additional stones. Pullback ureteroscopy was performed showed no injury to the ureter, repeat renoscopy and fluoroscopy was done which showed no additional stones, of note the stone was faintly radiopaque. At this time a 12 [place] nephrostomy tube was passed over the wire and into the kidney, antegrade nephrostogram was performed to confirm the location of the nephrostomy tube, s== contrast was seen going down the ureter, there was no additional filling defects appreciated. At this time the the sheath was removed and the medial aspect of the incision was closed using 2-0 Vicryl, the lateral incision was closed using 2-0 silk and the tube was secured to the skin. Sterile dressing was applied to the incision site. Patient tolerated procedure was taken to recovery in stable condition
[2025-01-17] MEDS: KETOROLAC 15 MG/ML 1 ML VIAL IVP SCH (16:57)
[2025-01-17] MEDS: DEXTROSE 5%-0.45% NACL 1,000 ML IV SCH (16:57)
[2025-01-17] MEDS: HEPARIN SODIUM,PORCINE 5,000 UNIT/ML 1 ML VIAL SQ SCH (16:58)
[2025-01-17] MEDS: ONDANSETRON 4 MG/2 ML VIAL IVP PRN (20:26)
[2025-01-18 07:51] VITALS: BP 119/64; PULSE 77; RESP 17; TEMP 98.3
[2025-01-18] MEDS: SERTRALINE 50 MG TAB PO SCH (08:10)
== END 2025-01-18 11:20 | disposition home or self-care (01) ==
LOC: OR 09:26 → 4SSUR 13:36 → OR 01-18 11:20
PROVIDERS: ATTEND Urology
DX: N20.0 Calculus of kidney (principal); J45.909 Unspecified asthma, uncomplicated; Z91.040 Latex allergy status; Z88.0 Allergy status to penicillin; Z79.899 Other long term (current) drug therapy
CPT/HCPCS: 82365; 50432; 74018; 52351; C2628; C1769 ×4; C1894; C1729; J1644 ×2; J1100; J2405; J0744; J1580; J1885 ×2; J1171; Q9967